=== PATIENT | female | born 1955 | race Caucasian/White ===

== ENCOUNTER → 2022-10-24 | Outpatient (CLI) | payer OTHER ==
[2022-10-25 08:59] LABS: Performing Lab SYMBIODYX; Test Name FLOW CYTOMETRY
== END | disposition home or self-care (01) ==
LOC: LAB 07:21 → LAB SHORT 07:21
PROVIDERS: Otolaryngology
DX: D49.0 Neoplasm of unspecified behavior of digestive system (principal); R59.0 Localized enlarged lymph nodes
CPT/HCPCS: 88173

== ENCOUNTER 2024-06-02 20:13 | Emergency (ER) | payer OTHER ==
[~2024-06-02] VITALS: Ht 157.5 cm; Wt 54.4 kg
[2024-06-02] MEDS ORDERED: Ketorolac Tromethamine 15mg Vial IM ONE (21:25)
[2024-06-02] MEDS ORDERED: Lidocaine 4% 1 Patch TOP ONE (21:25)
[2024-06-02] MEDS ORDERED: LIDOCAINE1 EACH TOP (21:39)
[2024-06-02 21:48] VITALS: BP 129/69
== END 2024-06-02 21:48 | disposition home or self-care (01) ==
LOC: ER 20:13
DX: R07.81 Pleurodynia (principal)
CPT/HCPCS: 71046; 93005; 93010; 96372; 99283-25; A9270; J1885

== ENCOUNTER 2024-06-28 15:00 | Observation (INO) | payer OTHER ==
[~2024-06-28] VITALS: Ht 157.5 cm; Wt 97.5 kg
[~2024-06-28 15:00] MED LIST: LIDOCAINE1 EACH TOP
[2024-06-28] MEDS ORDERED: DEXTROSE 5% IV ONE (18:55)
[2024-06-28] MEDS ORDERED: ACYCLOVIR SODIUM IV ONE (18:55)
[2024-06-28 19:50] LABS: BASOPHILS ABSOLUTE AUTO 0.05 K/mm3 (0.00-0.23); BASOPHILS PERCENT AUTO 1 % (0-2); EOSINOPHILS ABSOLUTE AUTO 0.13 K/mm3 (0.00-0.68); EOSINOPHILS PERCENT AUTO 3 % (0-6); Hemoglobin 10.8 g/dL (11.5-16.0); IMMATURE GRAN ABSOLUTE AUTO 0.01 K/mm3 (0.00-0.10); IMMATURE GRAN PERCENT AUTO 0 % (0-1); LYMPHOCYTES ABSOLUTE AUTO 0.89 K/mm3 (0.84-5.20); LYMPHOCYTES PERCENT AUTO 18 % (21-46); MONOCYTES PERCENT AUTO 8 % (4-13); Mean Corpuscular HGB 31.4 pg (26.0-34.0); Mean Corpuscular HGB Conc 33.8 g/dL (31.5-36.5); Mean Corpuscular Volume 93 fL (80-100); Mean Platelet Volume 8.5 fL (9.1-12.4); NEUTROPHILS ABSOLUTE AUTO 3.39 K/mm3 (1.96-9.15); NEUTROPHILS PERCENT AUTO 70 % (41-73); Platelet Count 313 K/mm3 (150-400); RDW Coefficient Variation 13.8 % (11.7-14.2); RDW Standard Deviation 43.2 fL (35.1-46.3); Red Blood Cell Count 3.44 M/mm3 (3.80-5.20); White Blood Cell Count 4.87 K/mm3 (4.00-11.30)
[2024-06-28] MEDS ORDERED: GABA100 PO (20:06)
[2024-06-28] MEDS ORDERED: VALA500 (20:06)
[2024-06-28 20:17] LABS: Bun/Creatinine Ratio 25.2 (12.0-20.0); Calcium, Blood 10.3 mg/dL (8.5-10.1); Creatinine, Blood 1.15 mg/dL (0.40-1.00); Potassium, Blood 4.4 mmol/L (3.5-5.5)
[2024-06-28] MEDS ORDERED: Acetaminophen 325 MG TABLET PO PRN (21:15)
[2024-06-28] MEDS ORDERED: FLU VACC TS2024-25(6MOS UP)/PF 45 MCG/0.5 ML SYRINGE IM SCH (21:20)
[2024-06-28] MEDS ORDERED: Ondansetron HCl 2 MG / ML 2ML Vial IV PRN (21:20)
[2024-06-28] MEDS ORDERED: Gabapentin 100 MG Cap PO SCH (22:00)
[2024-06-29 05:47] VITALS: BP 119/65
[2024-06-29 06:11] LABS: BASOPHILS ABSOLUTE AUTO 0.05 K/mm3 (0.00-0.23); BASOPHILS PERCENT AUTO 2 % (0-2); EOSINOPHILS ABSOLUTE AUTO 0.13 K/mm3 (0.00-0.68); EOSINOPHILS PERCENT AUTO 4 % (0-6); Hematocrit 32.1 % (33.0-51.0); Hemoglobin 10.7 g/dL (11.5-16.0); IMMATURE GRAN ABSOLUTE AUTO 0.01 K/mm3 (0.00-0.10); IMMATURE GRAN PERCENT AUTO 0 % (0-1); LYMPHOCYTES ABSOLUTE AUTO 0.66 K/mm3 (0.84-5.20); LYMPHOCYTES PERCENT AUTO 20 % (21-46); MONOCYTES ABSOLUTE AUTO 0.36 K/mm3 (0.16-1.47); MONOCYTES PERCENT AUTO 11 % (4-13); Mean Corpuscular HGB 32.1 pg (26.0-34.0); Mean Corpuscular HGB Conc 33.3 g/dL (31.5-36.5); Mean Corpuscular Volume 96 fL (80-100); Mean Platelet Volume 8.7 fL (9.1-12.4); NEUTROPHILS ABSOLUTE AUTO 2.11 K/mm3 (1.96-9.15); NEUTROPHILS PERCENT AUTO 64 % (41-73); Platelet Count 266 K/mm3 (150-400); RDW Coefficient Variation 13.7 % (11.7-14.2); RDW Standard Deviation 45.1 fL (35.1-46.3); Red Blood Cell Count 3.33 M/mm3 (3.80-5.20); White Blood Cell Count 3.32 K/mm3 (4.00-11.30)
[2024-06-29 06:33] LABS: Magnesium, Blood 2.2 mg/dL (1.6-2.4)
[2024-06-29 06:34] LABS: Albumin, Blood 2.9 g/dL (3.4-5.0); Albumin/Globulin Ratio 0.5 (0.8-1.8); Bilirubin, Total 0.3 mg/dL (0.1-1.0); Bun/Creatinine Ratio 22.8 (12.0-20.0); Calcium, Blood 10.1 mg/dL (8.5-10.1); Creatinine, Blood 1.14 mg/dL (0.40-1.00); Globulin, Blood 5.8 g/dL (2.2-4.0); Potassium, Blood 4.3 mmol/L (3.5-5.5); Total Protein, Blood 8.7 g/dL (6.4-8.2)
[2024-06-29 07:55] VITALS: BP 116/70
[2024-06-29] MEDS ORDERED: ACYCLOVIR IV SCH (09:00)
[2024-06-29] MEDS ORDERED: DEXTROSE 5% IV SCH (09:00)
[2024-06-29] MEDS ORDERED: Enoxaparin 40 MG/0.4 ML SYR SC SCH (09:00)
--- NOTE | 2024-06-29 09:56 | NUR ---
am note this rn assumed care at 0700. vital sings stable. tele afib [id number]. patient is alert and oriented x4. neuro is intact. patient is able to make needs known and uses call light appropriately. denies chest pain/pressure or shortness of breath. reports pain at 4 on numeric pain scale, and will received oral tylenol in half hour when able to give. this rn provided warm blanket for alternative pain relief. patient has scabbed shingles under left breast and upper back. patient has rash on abd. see shift assessment for further detials. md Hawkins in to see patient and discussed treatment plan with out patient iv abx and to see a willower. patient agrees to this plan.
--- NOTE | 2024-06-29 10:13 | NUR ---
am note this rn assumed care at 0700. vital sings stable. medical no tele patient is alert and oriented x4. neuro is intact. patient is able to make needs known and uses call light appropriately. denies chest pain/pressure or shortness of breath. reports pain at 4 on numeric pain scale, and will received oral tylenol in half hour when able to give. this rn provided warm blanket for alternative pain relief. patient has scabbed shingles under left breast and upper back. patient has rash on abd. see shift assessment for further detials. md Hawkins in to see patient and discussed treatment plan with out patient iv abx and to see a boiler testing technician. patient agrees to this plan.
[2024-06-29] MEDS ORDERED: Acyclovir 400 MG Tab PO SCH (14:00)
[2024-06-29] MEDS ORDERED: Protein Supplement 30 ML UD PO SCH (14:00)
[2024-06-29] MEDS ORDERED: Acetaminophen650 M1 PO (14:18)
[2024-06-29] MEDS ORDERED: ACYC800 PO (14:21)
[2024-06-29] MEDS ORDERED: NYSTATIN15 GM TOP (14:23)
[2024-06-29] MEDS ORDERED: HYDCOR2.5C TOP (14:23)
--- NOTE | 2024-06-29 14:40 | NUR ---
UPDATE md Narayan in to see patient around 1230 and looked at patients rash and shinles. Md informed patient that the rash on her abd does not look like shingles, but looks more like a yeast rash or rash from being too warm. Patient does not need to be on iv antiviral and will take acyclovir 800mg orally 5 times a day for 7 days, and has a hydrocortisone cream 2.5% and nystain cream to mix together to use on rash on abd twice a day for two weeks and then as needed. patient verbalized understanding of this. this rn updated MD Hawkins and discharge orders have been placed. medications faxed to [facility] and awaiting for to arrive to pick her up and go over dischareg paper work.
--- NOTE | 2024-06-29 15:58 | NUR ---
DISCHARGE EDUCATION this rn went over discharge education, medications, and follow ups. patient verbalized understanding and instructed this rn when to take her acyclovir next and how to use and when to use hydrocortisone cream and nystain cream. patient belongings gathered. awaiting to arrive.
--- NOTE | 2024-06-29 16:08 | NUR ---
discharge patient left with all belongings and left in no distress with
[2024-06-29] MEDS ORDERED: Hydrocortisone 2.5% Cream 30 GM Tube TOP SCH (21:00)
[2024-06-29] MEDS ORDERED: Nystatin 100,000 Unit/GM CREAM 15 GM TOP SCH (21:00)
== END 2024-06-29 16:05 | disposition home or self-care (01) ==
LOC: ER 15:00 → MEDS 15:01 → ER 15:01 → ERHOLD 15:01 → PCU 06-29 05:23
PROVIDERS: Emergency Medicine; ADMIT Student in an Organized Health Care Education/Training Program
DX: B02.9 Zoster without complications (principal); L30.4 Erythema intertrigo; C85.90 Non-Hodgkin lymphoma, unspecified, unspecified site
CPT/HCPCS: 80048; 80053; 83735; 85025; 96365; 96376; 99284-25; A9270; G0378; J0133; J8499